=== PATIENT | male | born 1960 | race Caucasian/White ===

== ENCOUNTER 2017-12-22 10:30 | Emergency (ER) | payer MEDICARE, MEDICAID ==
[~2017-12-22] VITALS: Ht 198.1 cm; Wt 121.0 kg
[2017-12-22 10:32] VITALS: BP 112/54
[2017-12-22] MEDS ORDERED: LIDOCAINE HCL/PF 1% 10 MG/ML 5ML VIAL IJ ONE (11:15)
[2017-12-22] MEDS ORDERED: TETANUS, DIPHTHERIA, PERTUSSIS VAC/PF 0.5ML (>7YR OLD) IM ONE (11:15)
[2017-12-22] MEDS ORDERED: LIDOCAINE HCL 1% 20ML VIAL (Pyxis) INJ INFIL ONE (12:30)
[2017-12-22] MEDS ORDERED: CEFTRIAXONE SODIUM 1 G/VIAL IM ONE (12:30)
== END 2017-12-22 13:52 | disposition home or self-care (01) ==
LOC: ER 12:41
DX: L02.212 Cutaneous abscess of back [any part, except buttock and flank] (principal); E78.00 Pure hypercholesterolemia, unspecified; I10 Essential (primary) hypertension; Z98.890 Other specified postprocedural states
CPT/HCPCS: 10060; 90471; 90715; 96372; 99284; J0696; J3490

== ENCOUNTER 2018-05-06 11:57 | Emergency (ER) | payer MEDICARE, MEDICAID ==
[~2018-05-06] VITALS: Ht 198.1 cm; Wt 125.0 kg
[2018-05-06] MEDS ORDERED: IBUPROFEN 600MG TABLET PO ONE (15:45)
[2018-05-06 16:03] VITALS: BP 140/82
== END 2018-05-06 16:04 | disposition home or self-care (01) ==
LOC: ER 13:17
DX: L03.114 Cellulitis of left upper limb (principal); E78.00 Pure hypercholesterolemia, unspecified; I10 Essential (primary) hypertension; Z90.89 Acquired absence of other organs; Z98.890 Other specified postprocedural states
CPT/HCPCS: 99283

== ENCOUNTER → 2021-02-25 | Day surgery (SDC) | payer MEDICARE, MEDICAID ==
[~2021-02-25] VITALS: Ht 198.1 cm; Wt 120.2 kg
[~2021-02-25] MED LIST: ATOR20TA MT; BUPIVACAINE HCL 0.5% (5MG/ML) 50ML ONE; CEFAZOLIN SODIUM 1000MG/VIAL ONE; FAMO40TA7 MT; FENTANYL CITRATE/PF 50MCG/ML 2ML VIAL IV PRN; FENTANYL CITRATE/PF 50MCG/ML 2ML VIAL ONE; HYDROMORPHONE HCL/PF 2MG/ML CPJ IV PRN; KETOROLAC 30MG/ML VIAL ONE; LACTATED RINGERS 1,000 ML IV SCH; LORA2TAB95 MT; MEPERIDINE HCL/PF 25MG/ML CPJ IV PRN; MIDAZOLAM HCL 2 MG/2 ML VIAL ONE; ONDANSETRON HCL 4MG/2ML INJ IV PRN; ONDANSETRON HCL 4MG/2ML INJ ONE; PROPOFOL 200MG/20ML VIAL IV ONE; ROCURONIUM BROMIDE 10MG/ML VIAL 5ML IV ONE; SKIN ADHESIVE 0.7 GM EA TOP ONE
== END | disposition home or self-care (01) ==
LOC: OR 07:20
PROVIDERS: ATTEND Surgery
DX: K40.90 Unilateral inguinal hernia, without obstruction or gangrene, not specified as recurrent (principal); F41.9 Anxiety disorder, unspecified; E78.00 Pure hypercholesterolemia, unspecified; K21.9 Gastro-esophageal reflux disease without esophagitis; I10 Essential (primary) hypertension; Z68.31 Body mass index [BMI] 31.0-31.9, adult; Z79.899 Other long term (current) drug therapy; Z98.890 Other specified postprocedural states; Z20.822 Contact with and (suspected) exposure to COVID-19
CPT/HCPCS: 49505; 87426; C1781; J0690; J1885; J2250; J2405; J2704; J3010; J3490

== ENCOUNTER → 2021-07-22 | Day surgery (SDC) | payer MEDICARE, MEDICAID ==
[~2021-07-22] VITALS: Ht 198.1 cm; Wt 120.2 kg
[~2021-07-22] MED LIST changes: +DEXAMETHASONE 4MG/ML 1ML VIAL ONE; -FENTANYL CITRATE/PF 50MCG/ML 2ML VIAL IV PRN; -FENTANYL CITRATE/PF 50MCG/ML 2ML VIAL ONE; +GLYCOPYRROLATE 0.2 MG/ML 2ML VIAL ONE; -KETOROLAC 30MG/ML VIAL ONE; +LABETALOL 5MG/ML SYR 20 MG/4 ML SYRINGE IV PRN; -MIDAZOLAM HCL 2 MG/2 ML VIAL ONE; -ONDANSETRON HCL 4MG/2ML INJ ONE; -PROPOFOL 200MG/20ML VIAL IV ONE; -ROCURONIUM BROMIDE 10MG/ML VIAL 5ML IV ONE
[2021-07-22 07:22] LABS: CLARITY URINE CLEAR (CLEAR); COLOR URINE DARK YELLOW (YELLOW); KETONES URINE TRACE (NEGATIVE); LEUKOCYTE ESTERASE URINE NEGATIVE (NEGATIVE); NITRITE URINE NEGATIVE (NEGATIVE); OCCULT BLOOD URINE NEGATIVE (NEGATIVE); PROTEIN URINE NEGATIVE (NEGATIVE); SPECIFIC GRAVITY URINE 1.024 (1.005-1.030)
== END | disposition home or self-care (01) ==
LOC: OR 05:20
PROVIDERS: ATTEND Surgery
DX: R22.2 Localized swelling, mass and lump, trunk (principal); R22.1 Localized swelling, mass and lump, neck; I10 Essential (primary) hypertension; E78.00 Pure hypercholesterolemia, unspecified; K21.9 Gastro-esophageal reflux disease without esophagitis; F41.9 Anxiety disorder, unspecified; Z79.899 Other long term (current) drug therapy; Z98.890 Other specified postprocedural states; Z20.822 Contact with and (suspected) exposure to COVID-19
CPT/HCPCS: 10120; 21555; 21930; 81003; 87426; 88300; 88304; C9803; J0690; J1100; J3490

== ENCOUNTER 2024-11-12 14:52 | Emergency (ER) | payer MEDICAID, MEDICARE ==
[~2024-11-12] VITALS: Ht 198.1 cm; Wt 100.0 kg
[~2024-11-12 14:52] MED LIST changes: -BUPIVACAINE HCL 0.5% (5MG/ML) 50ML ONE; -CEFAZOLIN SODIUM 1000MG/VIAL ONE; -DEXAMETHASONE 4MG/ML 1ML VIAL ONE; -GLYCOPYRROLATE 0.2 MG/ML 2ML VIAL ONE; -HYDROMORPHONE HCL/PF 2MG/ML CPJ IV PRN; -LABETALOL 5MG/ML SYR 20 MG/4 ML SYRINGE IV PRN; -LACTATED RINGERS 1,000 ML IV SCH; -MEPERIDINE HCL/PF 25MG/ML CPJ IV PRN; -ONDANSETRON HCL 4MG/2ML INJ IV PRN; -SKIN ADHESIVE 0.7 GM EA TOP ONE
[2024-11-12 15:03] VITALS: O2SAT 99
[2024-11-12 15:04] VITALS: BP 121/71; PULSE 66; RESP 14; TEMP 36.6; O2SAT 98
[2024-11-12 19:15] LABS: CLARITY URINE CLEAR (CLEAR); COLOR URINE YELLOW (YELLOW); GLUCOSE URINE NEGATIVE (NEGATIVE); KETONES URINE NEGATIVE (NEGATIVE); LEUKOCYTE ESTERASE URINE NEGATIVE (NEGATIVE); NITRITE URINE NEGATIVE (NEGATIVE); OCCULT BLOOD URINE NEGATIVE (NEGATIVE); PH URINE 7.0 (4.5-8.0); PROTEIN URINE NEGATIVE (NEGATIVE); SPECIFIC GRAVITY URINE 1.006 (1.005-1.030); UROBILINOGEN URINE 0.2 E.U./dL (0.2-1.0)
[2024-11-12] MEDS ORDERED: DOXY100T2 MT (19:30)
[2024-11-12] MEDS ORDERED: VALA100044 MT (19:30)
[2024-11-12] MEDS ORDERED: PENICILLIN G BENZATHINE 2,400,000 UNITS/4ML SYR IM ONE (19:30)
[2024-11-12] MEDS: CEFTRIAXONE SODIUM 500MG VIAL IM ONE (19:54)
[2024-11-15 04:12] LABS: HSV TYPE 2 SPECIFIC AB IGG Reactive (Non Reactive)
[2024-11-15 06:08] LABS: CHLAMYDIA TRACHOMATIS NAA Negative (Negative); NEISSERIA GONORRHOEAE NAA Negative (Negative)
== END 2024-11-12 20:00 | disposition home or self-care (01) ==
LOC: ER 14:52
DX: B00.9 Herpesviral infection, unspecified (principal); A54.9 Gonococcal infection, unspecified; A53.9 Syphilis, unspecified; Z11.3 Encounter for screening for infections with a predominantly sexual mode of transmission; Z79.624 Long term (current) use of inhibitors of nucleotide synthesis; Z98.890 Other specified postprocedural states; Z79.899 Other long term (current) drug therapy
CPT/HCPCS: 99283; 86592; 86695; 86696; 87491; 87591; 81003; 36415; 96372; J0696; J0561